=== PATIENT | male | born 1975 | race Caucasian/White ===

== ENCOUNTER 2018-01-08 11:18 | Day surgery (SDC) | payer OTHER ==
[2018-01-08] MEDS: NS 1,000 ML IV (11:57)
[2018-01-08] MEDS ORDERED: PROPOFOL 500 MG/50 ML VIAL As Ordered (12:35)
[2018-01-08] MEDS ORDERED: LIDOCAINE 2% INJ 100 MG/5 ML SDV (FOR ANES.) As Ordered (12:35)
== END 2018-01-08 13:30 | disposition home or self-care (01) ==
LOC: M OPP 11:18
DX: K92.1 Melena (principal); K64.8 Other hemorrhoids; K64.4 Residual hemorrhoidal skin tags
CPT/HCPCS: 45378